=== PATIENT | male | born 1960 | race Hispanic/Latino ===

== ENCOUNTER → 2018-04-29 | Outpatient (CLI) | payer MEDICAID | END | disposition home or self-care (01) | LOC: SHCH 09:14 | PROVIDERS: ATTEND Internal Medicine Cardiovascular Disease | DX: I08.1 Rheumatic disorders of both mitral and tricuspid valves (principal); I25.810 Atherosclerosis of coronary artery bypass graft(s) without angina pectoris | CPT/HCPCS: 93306 ==

== ENCOUNTER → 2020-02-11 | Outpatient (CLI) | payer MEDICAID | END | disposition home or self-care (01) | LOC: SHCH 09:37 | PROVIDERS: ATTEND Internal Medicine Cardiovascular Disease | DX: I10 Essential (primary) hypertension (principal); I35.0 Nonrheumatic aortic (valve) stenosis; I71.2 Thoracic aortic aneurysm, without rupture; R06.00 Dyspnea, unspecified | CPT/HCPCS: 93306; 93356 ==

== ENCOUNTER → 2020-02-15 | Outpatient (CLI) | payer MEDICAID ==
[~2020-02-15] MED LIST: REGADENOSON 0.4 MG/5 ML PF SYG IVP SCH
== END | disposition home or self-care (01) ==
LOC: SHCH 07:50
PROVIDERS: ATTEND Internal Medicine Cardiovascular Disease
DX: I71.2 Thoracic aortic aneurysm, without rupture (principal); R06.00 Dyspnea, unspecified
CPT/HCPCS: 78452; 93017; 96374; A9500 ×2; J2785

== ENCOUNTER → 2020-02-24 | Outpatient (CLI) | payer MEDICAID ==
[~2020-02-24] MED LIST changes: +IOHEXOL 350 MG/ML 100ML INFUS..BTL IV ONE; -REGADENOSON 0.4 MG/5 ML PF SYG IVP SCH
== END | disposition home or self-care (01) ==
LOC: RAH 08:55
PROVIDERS: ATTEND Internal Medicine Cardiovascular Disease
DX: I71.2 Thoracic aortic aneurysm, without rupture (principal); I25.709 Atherosclerosis of coronary artery bypass graft(s), unspecified, with unspecified angina pectoris; I35.0 Nonrheumatic aortic (valve) stenosis; I10 Essential (primary) hypertension
CPT/HCPCS: 71275; Q9967

== ENCOUNTER → 2022-07-20 | Outpatient (CLI) | payer MEDICAID ==
[2022-07-20 14:34] LABS: CREATININE 0.8 mg/dL (0.5-1.5); POTASSIUM 3.3 mmol/L (3.5-5.1)
== END | disposition home or self-care (01) ==
LOC: LAB 08:29
PROVIDERS: ATTEND Physician Assistant
DX: I10 Essential (primary) hypertension (principal)
CPT/HCPCS: 36415; 80048

== ENCOUNTER → 2022-08-15 | Outpatient (CLI) | payer MEDICAID | END | disposition home or self-care (01) | LOC: SHCH 09:16 | PROVIDERS: ATTEND Internal Medicine Cardiovascular Disease | DX: I35.2 Nonrheumatic aortic (valve) stenosis with insufficiency (principal) | CPT/HCPCS: 93306 ==

== ENCOUNTER → 2022-08-24 | Outpatient (CLI) | payer MEDICAID ==
[2022-08-24 12:37] LABS: CREATININE 0.9 mg/dL (0.5-1.5); POTASSIUM 3.5 mmol/L (3.5-5.1)
== END | disposition home or self-care (01) ==
LOC: LAB 08:03
PROVIDERS: ATTEND Physician Assistant
DX: I35.0 Nonrheumatic aortic (valve) stenosis (principal); I10 Essential (primary) hypertension
CPT/HCPCS: 36415; 80048

== ENCOUNTER → 2022-09-10 | Outpatient (CLI) | payer MEDICAID | END | disposition home or self-care (01) | LOC: RAH 10:03 | PROVIDERS: ATTEND Internal Medicine Cardiovascular Disease | DX: I71.21 Aneurysm of the ascending aorta, without rupture (principal) | CPT/HCPCS: 71275; Q9967 ==

== ENCOUNTER 2023-10-29 08:19 | Observation (INO) | payer MEDICAID ==
[2023-10-23 08:53] LABS: BASOPHILS # (AUTO) 0.02 K/uL (0.00-0.20); BASOPHILS % (AUTO) 0.2 % (0.0-5.0); EOSINOPHILS # (AUTO) 0.07 K/uL (0.00-0.70); EOSINOPHILS % (AUTO) 0.8 % (0.0-8.0); HEMATOCRIT 41.4 % (42-54); IMMATURE GRANULOCYTE ABSOLUTE 0.03 K/uL (0-1); LYMPHOCYTES # (AUTO) 1.2 K/uL (1.0-4.8); LYMPHOCYTES % (AUTO) 14.1 % (21.0-51.0); MEAN CORPUSCULAR HEMOGLOBIN 29.3 pg (27.0-33.0); MEAN CORPUSCULAR HGB CONC 35.3 g/dL (32.0-36.0); MONOCYTES # (AUTO) 0.8 K/uL (0.1-1.0); MONOCYTES % (AUTO) 8.7 % (3.0-13.0); NEUTROPHILS # (AUTO) 6.5 K/uL (1.8-7.7); NEUTROPHILS % (AUTO) 75.9 % (40.0-77.0); PLATELET COUNT (AUTO) 248 K/uL (130-400); RED BLOOD CELL COUNT(AUTO) 4.99 MIL/uL (4.50-6.20); RED CELL DISTRIBUTION WIDTH 12.4 % (11.0-15.5); WHITE BLOOD COUNT (AUTO) 8.6 K/uL (4.8-10.8)
[2023-10-23 08:54] VITALS: BP 151/81; PULSE 79; RESP 16
[2023-10-23 09:05] LABS: CREATININE 0.8 mg/dL (0.5-1.3)
[2023-10-23 09:09] LABS: INR 1.07 (0.85-1.15); PROTHROMBIN TIME 11.5 SEC (9.6-11.6)
[2023-10-23 09:11] LABS: PARTIAL THROMBOPLASTIN TIME 31.3 SEC (26.3-35.5)
[2023-10-29] VITALS (14 sets, daily range): BP systolic 106–159; BP diastolic 62–80; PULSE 57–71; RESP 13–18; O2SAT 98
[~2023-10-29] VITALS: Ht 170.2 cm; Wt 86.3 kg
[~2023-10-29 08:19] MED LIST changes: +AEC81 PO; +ATOR40TA69 PO; +CHOL100020 PO; +CLOP75TA32 PO; -IOHEXOL 350 MG/ML 100ML INFUS..BTL IV ONE; +LACT10SO75 PO; +LOSA50TA64 PO; +SIME125C PO
[2023-10-29 08:59] LABS: CREATININE 0.8 mg/dL (0.5-1.3)
[2023-10-29] MEDS: 0.9%NACL 1000ML 1,000 ML IV ONE (09:19)
[2023-10-29] MEDS ORDERED: LIDOCAINE HCL 1% MDV 50ML VIAL ONE (12:04)
[2023-10-29] MEDS ORDERED: IOHEXOL-350 50ML VIAL IV ONE ×2 (12:04→13:33)
[2023-10-29] MEDS ORDERED: CEFAZOLIN SODIUM 1 GM VIAL ONE (12:04)
[2023-10-29] MEDS ORDERED: BUPIVACAINE/PF 0.25% 30ML VIAL IJ ONE (12:04)
[2023-10-29] MEDS ORDERED: MIDAZOLAM HCL 1 MG/ML 2ML VIAL ONE ×5 (12:19→15:17)
[2023-10-29] MEDS ORDERED: MEPERIDINE-PF 25 MG/ML SYG ONE ×5 (12:19→15:16)
[2023-10-29] MEDS ORDERED: BACITRACIN 1 EACH PACKET TP ONE (14:58)
[2023-10-29] MEDS ORDERED: THROMBIN-JMI 5000 UNIT/VIAL TP ONE (15:02)
[2023-10-29] MEDS ORDERED: TRAM50TA4 PO (16:14)
[2023-10-29] MEDS ORDERED: ACETAMINOPHEN 500 MG TABLET PO PRN (16:30)
[2023-10-29] MEDS ORDERED: ACETAMINOPHEN WITH CODEINE 1 TAB TAB PO PRN (16:30)
[2023-10-30 00:36] VITALS: BP 126/76; PULSE 60; RESP 18
[2023-10-30 02:05] VITALS: PULSE 69; PULSE 76; RESP 19; O2SAT 97; O2SAT 98
[2023-10-30 03:58] VITALS: BP 133/69; PULSE 60; RESP 18
[2023-10-30 07:34] VITALS: BP 145/86; PULSE 62; RESP 18
== END 2023-10-30 09:25 | disposition home or self-care (01) ==
LOC: DAH 08:19 → DAHIP 08:20 → 2AH 18:17
PROVIDERS: ADMIT Internal Medicine Cardiovascular Disease; ATTEND Internal Medicine Cardiovascular Disease
DX: I44.1 Atrioventricular block, second degree (principal); I11.0 Hypertensive heart disease with heart failure; I50.9 Heart failure, unspecified; I25.10 Atherosclerotic heart disease of native coronary artery without angina pectoris; E78.5 Hyperlipidemia, unspecified; G47.30 Sleep apnea, unspecified; Z95.1 Presence of aortocoronary bypass graft; Z79.899 Other long term (current) drug therapy
CPT/HCPCS: 80048 ×2; 85025; 85610; 85730; 36415 ×2; 93005; 33225; 33229; 71045; C1769 ×4; C1900; C2621; G0378 ×16; J0690; J7030; J0665; J2250 ×5; J3490 ×2; J2175 ×5; Q9967 ×2; A4215; A4223 ×3; A4222; A4221; A4663; A4216; A4606; 99156; 99157

== ENCOUNTER → 2023-12-17 | Outpatient (CLI) | payer MEDICAID ==
[~2023-12-17] MED LIST changes: +TRAM50TA4 PO
== END | disposition home or self-care (01) ==
LOC: RAH 09:16
PROVIDERS: ATTEND Family Medicine
DX: M47.816 Spondylosis without myelopathy or radiculopathy, lumbar region (principal); M41.9 Scoliosis, unspecified; Z95.0 Presence of cardiac pacemaker; Z98.890 Other specified postprocedural states
CPT/HCPCS: 72082; 72100

== ENCOUNTER → 2024-04-10 | Outpatient (CLI) | payer MEDICAID | END | disposition home or self-care (01) | LOC: SHCH 12:48 | PROVIDERS: ATTEND Internal Medicine Cardiovascular Disease | DX: I42.0 Dilated cardiomyopathy (principal) | CPT/HCPCS: 93306 ==

== ENCOUNTER 2024-08-11 06:01 | Day surgery (SDC) | payer OTHER ==
[~2024-08-11] VITALS: Ht 170.2 cm; Wt 83.9 kg
[2024-08-11] VITALS (10 sets, daily range): BP systolic 116–161; BP diastolic 72–80; PULSE 60–68; RESP 16–18; TEMP 97–98
[~2024-08-11 06:01] MED LIST changes: -TRAM50TA4 PO
[2024-08-11] MEDS: 0.9%NACL 1000ML 1,000 ML IV ONE (06:42)
[2024-08-11] MEDS ORDERED: proPOFol 10 MG/ML 20ML VIAL IV ONE (07:37)
[2024-08-11] MEDS ORDERED: LIDOCAINE HCL 400MG/20ML VIAL ONE (07:37)
--- NOTE | 2024-08-11 14:55 | NUR ---
UPON ASSESSMENT PT HAS SLIGHTLY LESS SENSATION TO LEFT ARM AND LEFT LEG. PT DID TELL ME THIS IS NORMAL FOR HIM. FULL ROM TO UPPER LOWER EXTREMITIES
== END 2024-08-11 08:35 | disposition home or self-care (01) ==
LOC: ENDO 06:01 → DAH 06:01 → ENDO 08:35
PROVIDERS: ATTEND Internal Medicine Gastroenterology
DX: Z12.11 Encounter for screening for malignant neoplasm of colon (principal); R14.0 Abdominal distension (gaseous); K62.3 Rectal prolapse; R15.9 Full incontinence of feces; R15.1 Fecal smearing; L29.0 Pruritus ani; E78.5 Hyperlipidemia, unspecified; G47.33 Obstructive sleep apnea (adult) (pediatric); Q42.3 Congenital absence, atresia and stenosis of anus without fistula; I10 Essential (primary) hypertension; Z95.1 Presence of aortocoronary bypass graft; Z79.899 Other long term (current) drug therapy; Z79.82 Long term (current) use of aspirin; Z95.0 Presence of cardiac pacemaker; Z87.898 Personal history of other specified conditions; Z98.890 Other specified postprocedural states
CPT/HCPCS: 45378; J3490; J7030; J2704; A4620; A4215 ×2; A4223; A4222; A4221; A4663; A4606

== ENCOUNTER 2024-08-12 05:34 | Day surgery (SDC) | payer OTHER ==
[2024-08-12] VITALS (12 sets, daily range): BP systolic 91–159; BP diastolic 42–84; PULSE 62–71; RESP 15–16; TEMP 97.1–206.8
[~2024-08-12] VITALS: Ht 154.9 cm; Wt 83.9 kg
[2024-08-12] MEDS: 0.9%NACL 1000ML 1,000 ML IV ONE (06:33)
[2024-08-12] MEDS ORDERED: proPOFol 10 MG/ML 20ML VIAL IV ONE (08:11)
--- NOTE | 2024-08-14 11:20 | EKG ---
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
== END 2024-08-12 09:45 | disposition home or self-care (01) ==
LOC: ENDO 05:34 → DAH 05:34 → ENDO 09:45
PROVIDERS: ATTEND Internal Medicine Gastroenterology
DX: Z12.11 Encounter for screening for malignant neoplasm of colon (principal); R14.0 Abdominal distension (gaseous); K62.89 Other specified diseases of anus and rectum; K59.39 Other megacolon; Q43.8 Other specified congenital malformations of intestine; K62.3 Rectal prolapse; E78.5 Hyperlipidemia, unspecified; I10 Essential (primary) hypertension; G47.33 Obstructive sleep apnea (adult) (pediatric); R15.1 Fecal smearing; L29.0 Pruritus ani; Q42.3 Congenital absence, atresia and stenosis of anus without fistula; Z79.899 Other long term (current) drug therapy; Z79.82 Long term (current) use of aspirin; Z95.1 Presence of aortocoronary bypass graft; Z95.0 Presence of cardiac pacemaker; Z98.890 Other specified postprocedural states
CPT/HCPCS: 45378; 93005; A4606; J2704; J7030; A4215; A4221; A4222; A4223; A4620; A4663; J3490

== ENCOUNTER → 2024-11-25 | Outpatient (CLI) | payer OTHER, MEDICAID ==
[~2024-11-25] MED LIST changes: +ACET-2079 PO; -AEC81 PO; -CLOP75TA32 PO; +DOCU100C33 PO; +IOHEXOL-350 75 ML VIAL IV ONE; +LEVO-70 PO; +LORA10TA7 PO
--- NOTE | 2024-11-25 16:44 | HMCIMG ---
EXAM: CT Chest With Intravenous Contrast. CLINICAL HISTORY: 64-year-old male with atherosclerosis of the coronary artery. TECHNIQUE: Axial computed tomography images of the chest with intravenous contrast. Dose reduction technique was used including one or more of the following: automated exposure control, adjustment of mA and kV according to patient size, and/or iterative reconstruction. CONTRAST: With. COMPARISON: 09/10/2022. FINDINGS: LUNGS: No pulmonary embolism. No pulmonary mass. No focal airspace consolidation. PLEURAL SPACES: No pleural effusion. No pneumothorax. HEART AND MEDIASTINUM: Left-sided cardiac pacemaker seen. Atherosclerosis of the coronary arteries. The ascending aorta measures 4.9 cm. The diameter of the ascending aorta is similar compared to the prior CTA chest dated 09/10/2022. Correlate clinically. LYMPH NODES: Mediastinal and hilar lymph nodes negative. CHEST WALL AND UPPER ABDOMEN: Large right hepatic cyst. The upper abdominal solid organs are otherwise unremarkable. The chest wall is unremarkable. BONES: Moderate degenerative changes of the thoracic spine. No acute osseous abnormality. Chronic findings similar to prior CTA Chest dated 09/10/2022. IMPRESSION: 1. No acute intra-thoracic abnormality. 2. Atherosclerosis of the coronary arteries and left-sided cardiac pacemaker. 3. Ascending aorta measures 4.9 cm, similar to prior CTA chest dated 09/10/2022. Correlate clinically. /[place]
== END | disposition home or self-care (01) ==
LOC: RAH 09:00
PROVIDERS: ATTEND Internal Medicine Cardiovascular Disease
DX: I25.810 Atherosclerosis of coronary artery bypass graft(s) without angina pectoris (principal); M47.814 Spondylosis without myelopathy or radiculopathy, thoracic region; K76.89 Other specified diseases of liver; Z95.0 Presence of cardiac pacemaker
CPT/HCPCS: 71270; Q9967